=== PATIENT | male | born 1995 | race Caucasian/White ===

== ENCOUNTER 2021-11-03 13:42 | Emergency (ER) | payer SELFPAY ==
[2021-11-03 13:42] VITALS: BP 165/102; PULSE 88; RESP 16; TEMP 36.8; O2SAT 99; BMI 36.2
--- NOTE | 2021-11-03 13:54 | ED.VIS.LOWEX ---
HPI History of Present Illness Chief Complaint: Lower Extremity Injury Detail of Chief Complaint: Pain and swelling in the right foot Informant: patient Narrative Narrative: Patient presents the emergency department complaint of pain and swelling to the right foot over the area of the first MTP joint that start about a month ago. Patient denies any trauma. Patient's states that he was much more swollen before he started taking ibuprofen and the swelling seems to have gone down. He is never had any discomfort like this before. He denies any fever. No history of gout. PFSH PFSH Medical History no medical history Home Medications NK 11/03/21 [History Last Taken Unknown] Allergy/AdvReac Type Severity Reaction Status Date / Time No Known Allergies Allergy Verified 11/03/21 14:00 Family History no significant family his Surgical History no surgical history Social History Smoking Status: Current some day smoker tobacco type: smokeless tobacco ROS ROS ED Review of Systems ROS Unobtainable: other Constitutional Constitutional ED: Reports lethargy; Denies chills, fever(s), sweats or weight loss Eyes Eyes: Denies blurry vision, change in vision or diplopia ENT ENT ED: Denies rhinorrhea or sore throat Cardiovascular Cardiovascular: Reports chest pain and racing heartbeat; Denies orthopnea Respiratory/Chest Respiratory/Chest: Reports dyspnea and dyspnea on exertion; Denies cough, orthopnea or sputum Gastrointestinal Gastrointestinal: Denies abdominal pain, diarrhea, nausea or vomiting Genitourinary Genitourinary ED: Denies dysuria, hematuria or urinary frequency Musculoskeletal Musculoskeletal: Reports other Details: Right foot pain and swelling ; Denies arthralgias, back pain, myalgias or neck pain Integumentary Denies abscess, Abrasions or rash Neurologic Neurologic: Denies headache(s) or weakness Psychiatric Psychiatric: Denies anxiety, depression or suicidal thoughts Endocrine Endocrinology: Denies polydipsia, polyphagia or polyuria Hematologic/Lymphatic Hematologic/Lymphatic: Denies easy bleeding, easy bruising or lymphadenopathy Allergic/Immunologic Allergic/Immunologic ED: Denies mouth swelling, tongue swelling or urticaria EXAM Physical Exam Const Vital Signs: 11/03/21 13:42 Temperature 98.2 F Temperature Source Temporal Pulse Rate 88 Respiratory Rate 16 Blood Pressure 165/102 H Blood Pressure Mean 123 Pulse Ox 99 Oxygen Delivery Method Room Air Positive well nourished and well developed General Appearance ED: well developed and NAD HEENT Reports TM's clear and moist mucous membranes normocephalic and atraumatic; Negative for trauma or tenderness Tympanic Membrane ED: Yes TM's clear Eyes PERRL and EOMs intact bilaterally General Eye ED: Negative for pale conjunctiva or scleral icterus Neck no lymphadenopathy, supple and no JVD General: Negative for tenderness Chest Wall inspection of chest normal and palpation of chest normal Chest: Negative for tenderness Resp normal respiratory effort and clear to auscultation bilaterally Effort and Inspection: Negative for respiratory distress or pain with movement Auscultation: Negative for rhonchi, wheezes or diminished lung sounds Cardio regular rate, regular rhythm, S1 normal heart sound, S2 normal heart sound and no murmurs Peripheral Pulses: pulses 2+ throughout GI normal to inspection, nondistended, normoactive bowel sounds, soft to palpation, non-tender, non-distended and no masses Back/Spine no CVA tenderness and no thoracic nor lumbar tenderness Extremity Extremity Narrative: Right foot-patient does have some soft tissue swelling over the medial aspect of the first MTP joint with some faint bogginess noted over the joint. There is no erythema or cellulitic changes noted. Neurovascular intact distally. General Extremety ED: Negative for edema General Extremity: Negative for edema Neuro oriented x3, CN's II-XII intact bilaterally, no sensory deficits noted and gait normal Sensorium / Orientation: awake, alert, oriented to person, oriented to place and oriented to time Motor Exam: strength 5/5 throughout and strength abnormal Psych mental status grossly normal Skin no rashes or lesions noted and no wounds MDM MDM MDM Narrative Medical decision making narrative: X-rays of the right foot obtained showed a small avulsion fracture at the base of the proximal phalanx of the great toe. I suspect this is likely the cause of his pain and swelling. Patient states that the swelling and discomfort is actually improved with ibuprofen over time but he was just concerned that it had not resolved in a month. I will refer him to podiatry for follow-up. Patient does not want crutches. He does not want a thing for pain. Radiography Diagnostic Testing: Clinical Impression(s) from Imaging Studies Foot X-Ray 11/03/21 14:05 IMPRESSION: Nondisplaced avulsion type fracture at the base of the proximal pharynx of the great toe with overlying soft tissue swelling. Electronically Signed: Jose Andino MD at 14:26 EDT , Three-view x-rays of the right foot obtained interpreted by myself a small avulsion fracture at the base of the proximal phalanx of the great toe. Radiology in agreement. Discharge Plan Triage Chief Complaint: Lower Extremity Injury ED Provider: Alexis Puentes Dx/Rx/DC Orders Clinical Impression: Fracture of toe Instructions: ED Fracture, Foot Prescriptions: No Action NK Primary Care Provider: Care Physician,No Primary Referrals: Guerrero Schulz DPM [STAFF PHYSICIAN] - 5-7 Days NOT,DEFINED [NON-STAFF] - Disposition Disposition: Home, Self Care
--- NOTE | 2021-11-03 14:05 | RAD_ITS ---
STUDY: X-RAY - RIGHT FOOT CLINICAL: Male, 26 years old. Pain, swelling 1st MTP TECHNIQUE: 3 view(s) of the foot. COMPARISON: None. FINDINGS: Normal talus, calcaneus, and tarsal bones. Normal visualized subtalar, talonavicular, calcaneocuboid, tarsal and tarsometatarsal articulations. Normal metatarsi. Normal metatarsophalangeal joint of the great toe. Normal tibial and fibular sesamoid bones. Normal interphalangeal joint of the great toe. Nondisplaced avulsion fracture at the base of the proximal phalanx of the great toe. Normal second through fifth metatarsophalangeal joints. Normal interphalangeal joints and phalanges of the lesser toes. Soft tissue swelling overlying the first metatarsophalangeal joint. RAD/Foot min 3 Views IMPRESSION: Nondisplaced avulsion type fracture at the base of the proximal pharynx of the great toe with overlying soft tissue swelling. Electronically Signed: Jose Andino MD at 14:26 EDT ,
== END 2021-11-03 15:03 | disposition home or self-care (01) ==
PROVIDERS: Emergency Provider Emergency Medicine; Visit Provider Emergency Medicine
DX: S92.414A Nondisplaced fracture of proximal phalanx of right great toe, initial encounter for closed fracture (principal); F17.220 Nicotine dependence, chewing tobacco, uncomplicated
CPT/HCPCS: 73630; 99282

== ENCOUNTER 2021-12-08 06:53 | Emergency (ER) | payer SELFPAY ==
[2021-12-08 06:55] VITALS: BP 189/117; PULSE 131; RESP 20; TEMP 36.9; O2SAT 97; BMI 39.2
--- NOTE | 2021-12-08 07:21 | EKG12_ITS ---
Test Reason : substance abuse Blood Pressure : / mmHG Vent. Rate : 128 BPM Atrial Rate : 128 BPM P-R Int : 150 ms QRS Dur : 084 ms QT Int : 288 ms P-R-T Axes : 042 012 012 degrees QTc Int : 420 ms Sinus tachycardia Poor R wave progression Confirmed by ALICIA MAYNARD, PETTY ([id number]), photography editor RAHUL DIOR ([id number]) on 12/10/2021 9:36:05 AM Referred By: C Confirmed By:PETTY VARGAS MD
--- NOTE | 2021-12-08 07:23 | EX.ED.DYSGE1 ---
HPI History of Present Illness Chief Complaint: Substance Abuse Narrative Narrative: Patient has not drank alcohol in 3 days, he is used to drinking 20-30 beers a day as well as a 1.5 L bottle of liquor on top of the beers. He tells me he drinks till he passes out. He now feels confused at times, feels shaky and he feels his heart racing, he is sweaty. He has no chest pain or shortness of breath, he has no abdominal pain, he does have some nausea, he has had decreased p.o. intake in the past 3 days. [facility] Home Medications NK 11/03/21 [History Last Taken Unknown] Allergy/AdvReac Type Severity Reaction Status Date / Time No Known Allergies Allergy Verified 12/08/21 06:59 Social History Smoking Status: Current some day smoker tobacco type: smokeless tobacco ROS ROS ED ROS Narrative Past medical history: Reviewed he is denying any medical problems Medications: Reviewed, he is denying taking medications Social history: Alcohol abuse and dependency as in HPI Review of systems: All systems negative except as indicated General: No fever, he does have sweats. Eyes: No visual changes ENT: No upper airway congestion, normal voice Neck: No neck pain Cardiovascular: No chest pain. He does feel palpitations and some lightheadedness Respiratory: No shortness of breath or cough Gastrointestinal: No abdominal pain, there is some nausea but no vomiting, no diarrhea or constipation. Genitourinary: No dysuria Musculoskeletal: Denies myalgias no difficulty with ambulation Skin: No rash Neurological: No memory loss, he has intermittent confusion but currently he is oriented x3 Psych: Depression Hematologic: No easy bleeding or easy bruising EXAM Physical Exam Narrative Exam Narrative: Physical exam General: Patient appears uncomfortable, he does appear in some distress he is diaphoretic Head: Normocephalic, Atraumatic Eyes: Conjunctiva not pale ENT: Slightly dry mucous membranes Neck: Supple, Nontender, No lymphadenopathy Cardiovascular: Regular tachycardia no obvious murmur Respiratory: No distress, CTA bilaterally, respirations are 18 per me he does not seem to have any breathing difficulties currently Abdomen: Soft, Nontender, Nondistended Back: Nontender, Normal Inspection. Negative for: CVA tenderness Extremities: Nontender, No edema Skin: Normal color, No rash Neurological: Alert, currently he is oriented x3 normal Strength, Normal Sensation Psychological: He does appear quite anxious. Const Vital Signs: 12/08/21 06:55 12/08/21 08:14 12/08/21 08:23 Temperature 98.4 F Temperature Source Oral Pulse Rate 131 H 113 H Respiratory Rate 20 H 20 H Blood Pressure 189/117 H 145/109 H 148/103 H Blood Pressure Mean 141 121 118 Pulse Ox 97 96 Oxygen Delivery Method Room Air Room Air Room Air MDM MDM MDM Narrative Medical decision making narrative: Patient's work-up is unremarkable other than lactic acidosis, he did improve after phenobarbital and benzodiazepines however he is still slightly tachycardic. We will place him in the PCU which is a stepdown unit, he will continue to get the alcohol withdrawal protocol as needed. Lab Data Labs: Laboratory Results - last 24 hr 12/08/21 12/08/21 12/08/21 07:07 07:07 07:30 WBC 7.7 RBC 5.63 Hgb 16.7 H Hct 48.9 MCV 86.9 MCH 29.7 MCHC 34.2 RDW Std Deviation 40.9 RDW Coeff of Josemanuel 13.3 MPV 11.3 Immature Gran % (Auto) 0.700 Neut % (Auto) 56.1 Lymph % (Auto) 35.4 Marshall % (Auto) 6.1 Eos % (Auto) 0.5 Baso % (Auto) 1.2 H Absolute Neuts (auto) 4.3 Absolute Lymphs (auto) 2.72 Nucleated RBC % 0 Platelet Estimate ADEQUATE RBC Morphology NORM C+C PT 14.0 INR 1.1 Sodium 138 Potassium 3.7 Chloride 103 Carbon Dioxide 24.0 Anion Gap 11 BUN 2 L Creatinine 1.11 Estim Creat Clear Calc 118.42 Est GFR (MDRD) Af Amer 101 Est GFR (MDRD) Non-Af 84 BUN/Creatinine Ratio 1.8 L Glucose 172 H Lactic Acid Calcium 8.9 Total Bilirubin 0.40 AST 69 H ALT 108 H Alkaline Phosphatase 51 Total Protein 8.1 Albumin 3.7 Globulin 4.4 H Albumin/Globulin Ratio 0.8 L Acetone Level 12/08/21 12/08/21 07:30 07:30 WBC RBC Hgb Hct MCV MCH MCHC RDW Std Deviation RDW Coeff of Josemanuel MPV Immature Gran % (Auto) Neut % (Auto) Lymph % (Auto) Marshall % (Auto) Eos % (Auto) Baso % (Auto) Absolute Neuts (auto) Absolute Lymphs (auto) Nucleated RBC % Platelet Estimate RBC Morphology PT INR Sodium Potassium Chloride Carbon Dioxide Anion Gap BUN Creatinine Estim Creat Clear Calc Est GFR (MDRD) Af Amer Est GFR (MDRD) Non-Af BUN/Creatinine Ratio Glucose Lactic Acid 4.7 H* Calcium Total Bilirubin AST ALT Alkaline Phosphatase Total Protein Albumin Globulin Albumin/Globulin Ratio Acetone Level NEGATIVE ABG Data ABG results: ABG 12/08/21 07:56 Specimen Type ART Sample Site R Radial pH 7.38 Bicarbonate Actual 21.5 L Total CO2 23 Base Excess -4 L O2 Saturation 96 O2 % 21 ABG pCO2 36.8 ABG pO2 86 Varun Test Positive O2 Delivery Device Room Air Critical Care Time Critical Care Time: Yes Critical care time (excluding procedures): 30-74 minutes and - (Critical care time is minutes. Patient was actively withdrawing, diaphoretic and tachycardic when he arrived, he he was monitored, he has the potential to have DTs and seizures. I discussed with consultants and documented during the 30 minutes.) Discharge Plan Triage Chief Complaint: Substance Abuse ED Provider: Radhames Blake Dx/Rx/DC Orders Clinical Impression: Alcohol withdrawal, Acidosis, lactic Prescriptions: No Action NK Primary Care Provider: Care Physician,No Primary Referrals: Care Physician,No Primary [Primary Care Provider] - Disposition Disposition: Acute Care [facility]
[2021-12-08] MEDS: Ondansetron 4 MG/2 ML Vial IV ×2 (07:32→09:16)
[2021-12-08] MEDS: LORazepam 2 MG/ML Syringe 1 MG IV (07:33)
[2021-12-08] MEDS: Phenobarbital 32.4 MG Tablet 97.2 MG PO (07:34)
[2021-12-08] MEDS: 0.9% Normal Saline 1,000 ML 1000 ML IV ×2 (07:37→09:00)
[2021-12-08 07:45] LABS: Absolute Lymphocyte Count 2.72 X10^3/uL (0.83-4.51); Absolute Neutrophil Count 4.3 X10^3/uL (2.0-7.7); Basophil# 0.09 X10^3/uL; Basophil% 1.2 % (0-1); Eosinophil# 0.04 X10^3/uL; Eosinophils% 0.5 % (0-5); Hematocrit 48.9 % (40-54); Hemoglobin 16.7 g/dL (13.0-16.5); Lymphocyte # 2.72 X10^3/ul (0.83-4.51); Lymphocyte % 35.4 % (19-41); Mean Corp Hgb Conc 34.2 g/dL (32-36); Mean Corpuscular Hgb 29.7 pg (27.0-32.0); Mean Corpuscular Volume 86.9 fL (80-94); Mean Platelet Vol. 11.3 fl (6.2-12.0); Monocyte# 0.47 X10^3/uL; Monocyte% 6.1 % (0-10); NRBC Flagged by Analyzer 0 % (0-5); Neutrophil # 4.32 X10^3/uL (2.7-7.7); Neutrophil % 56.1 % (47-70); POSITIVE COUNT YES; RBC Distribution Width CV 13.3 % (11.6-14.6); RBC Distribution Width SD 40.9 fl (35.1-43.9); Red Blood Count 5.63 M/mm3 (4.6-6.2); White Blood Count 7.7 K/mm3 (4.4-11.0)
[2021-12-08 07:47] LABS: Differential Indicated SCAN CRITERIA MET
[2021-12-08 07:50] LABS: ALB/GLOB Ratio 0.8 RATIO (0.9-2.4); AST(SGOT) 69 U/L (15-37); Alanine Aminotransfer ALT/SGPT 108 U/L (16-61); Albumin, Serum 3.7 g/dL (3.2-5.0); Alkaline Phosphatase 51 U/L (45-117); Anion Gap 11 (5-15); BUN 2 mg/dL (7-18); BUN/Creat Ratio 1.8 RATIO (10-20); Calcium,Total 8.9 mg/dL (8.5-10.1); Chloride 103 mmol/L (98-107); Creatinine, Serum 1.11 mg/dL (0.70-1.30); EST Glomerular Filtration Rate 84 mL/min (>60); Est Glom Filt Rate - Afr Amer 101 mL/min (>60); Estimated Creatinine Clearance 118.42 ml/min; Globulin 4.4 g/dL (2.2-4.2); Glucose 172 mg/dL (74-106); Potassium 3.7 mmol/L (3.5-5.1); Protein, Total 8.1 g/dL (6.4-8.2); Sodium Level 138 mmol/L (136-145)
[2021-12-08 08:00] LABS: Allen Test Positive; Base Excess -4 mmol/L (-2 to +2); Bicarbonate 21.5 mmol/L (22-26); Blood Gas Specimen Type ART; FI02 21; O2 Delivery Device Room Air; PO2 86 mmHG (75-100); SITE R Radial; SO2 96 % (95-99); Total Carbon Dioxide 23 mmol/L; pCO2 36.8 mmHg (35-45); pH 7.38 (7.35-7.45)
[2021-12-08 08:04] LABS: Lactic Acid 4.7 mmol/L (0.4-1.9)
[2021-12-08 08:14] VITALS: BP 145/109
[2021-12-08 08:14] LABS: International Normalized Ratio 1.1
[2021-12-08 08:23] VITALS: BP 148/103; PULSE 113; RESP 20; O2SAT 96
[2021-12-08 08:24] LABS: Platelet Estimate ADEQUATE (ADEQ); Red Cell Morphology NORM C+C NORMAL (NORM C&C)
--- NOTE | 2021-12-08 08:31 | PCM.HP.STD ---
HPI - General General Date of Admission: 12/08/21 Date of Service: 12/08/21 Chief Complaint: Acute alcohol withdrawal HPI Narrative EARNESTINE HENLEY, is a 26 M who presents [facility] Home Medications NK 11/03/21 [History Last Taken Unknown] Allergy/AdvReac Type Severity Reaction Status Date / Time No Known Allergies Allergy Verified 12/08/21 06:59 Social History Smoking Status: Current some day smoker tobacco type: smokeless tobacco Vital Signs Vital Signs Vital Signs: 12/08/21 06:55 12/08/21 08:14 12/08/21 08:23 Temperature 98.4 F Temperature Source Oral Pulse Rate 131 H 113 H Respiratory Rate 20 H 20 H Blood Pressure 189/117 H 145/109 H 148/103 H Blood Pressure Mean 141 121 118 Pulse Ox 97 96 Oxygen Delivery Method Room Air Room Air Room Air Weight Weight: 142.3 kg Body Mass Index (BMI) 39.2 Results Lab / Micro Data Result Diagrams: 12/08/21 07:07 12/08/21 07:07 Labs: Laboratory Results - last 24 hr 12/08/21 07:07: WBC 7.7, RBC 5.63, Hgb 16.7 H, Hct 48.9, MCV 86.9, MCH 29.7, MCHC 34.2, RDW Std Deviation 40.9, RDW Coeff of Josemanuel 13.3, MPV 11.3, Immature Gran % (Auto) 0.700, Neut % (Auto) 56.1, Lymph % (Auto) 35.4, Amador % (Auto) 6.1, Eos % (Auto) 0.5, Baso % (Auto) 1.2 H, Absolute Neuts (auto) 4.3, Absolute Lymphs (auto) 2.72, Nucleated RBC % 0, Platelet Estimate ADEQUATE, RBC Morphology NORM C+C 12/08/21 07:07: Sodium 138, Potassium 3.7, Chloride 103, Carbon Dioxide 24.0, Anion Gap 11, BUN 2 L, Creatinine 1.11, Estim Creat Clear Calc 118.42, Est GFR (MDRD) Af Amer 101, Est GFR (MDRD) Non-Af 84, BUN/Creatinine Ratio 1.8 L, Glucose 172 H, Calcium 8.9, Total Bilirubin 0.40, AST 69 H, ALT 108 H, Alkaline Phosphatase 51, Total Protein 8.1, Albumin 3.7, Globulin 4.4 H, Albumin/Globulin Ratio 0.8 L 12/08/21 07:30: PT 14.0, INR 1.1 12/08/21 07:30: Acetone Level NEGATIVE 12/08/21 07:30: Lactic Acid 4.7 H* ABG Data ABG results: ABG 12/08/21 07:56 Specimen Type ART Sample Site R Radial pH 7.38 Bicarbonate Actual 21.5 L Total CO2 23 Base Excess -4 L O2 Saturation 96 O2 % 21 ABG pCO2 36.8 ABG pO2 86 Varun Test Positive O2 Delivery Device Room Air
--- NOTE | 2021-12-08 08:56 | ED.RN ---
AFTER REVIEWING THE RAMP RULES, PT. STATES, I CAN'T STAY. I HAVE TO GO TO WORK. I'D LIE TOO, BUT I CAN'T. DR. DIANE INFORMED
[2021-12-08 10:12] VITALS: PULSE 112; RESP 18; O2SAT 98
[2021-12-08 10:44] LABS: Lactic Acid 6.7 mmol/L (0.4-1.9)
[2021-12-08 11:37] LABS: Reflex Lactate? Y
== END 2021-12-08 10:13 | disposition left against medical advice (07) ==
PROVIDERS: Emergency Provider Emergency Medicine; Visit Provider Emergency Medicine
DX: F10.239 Alcohol dependence with withdrawal, unspecified (principal); F17.220 Nicotine dependence, chewing tobacco, uncomplicated; E87.2 Acidosis; Z53.29 Procedure and treatment not carried out because of patient's decision for other reasons
CPT/HCPCS: 36600; 80053; 82009; 82077; 82803; 83605; 85025; 85610; 93005; 96361; 96374; 96375; 96376; 99283; J7030; A4216; J2405

== ENCOUNTER 2022-02-01 19:19 | Emergency (ER) | payer SELFPAY ==
[2022-02-01 19:21] VITALS: BP 155/95; PULSE 113; RESP 15; TEMP 36.6; O2SAT 98; BMI 38.1
== END 2022-02-01 20:00 | disposition left against medical advice (07) ==
LOC: ED 21:11
DX: Z53.21 Procedure and treatment not carried out due to patient leaving prior to being seen by health care provider (principal)